=== PATIENT | female | born 1990 | race African-American/Black ===

== ENCOUNTER 2017-11-12 17:29 | Emergency (ER) | payer SELFPAY ==
[2017-11-12] MEDS: PENICILLIN G BENZATHINE LA 1,200,000 UNIT/2 ML DISP.SYRIN. IM (18:45)
[2017-11-12] MEDS: ACETAMINOPHEN 650 MG/20.3 ML SOLUTION. PO (18:45)
== END 2017-11-12 19:11 | disposition home or self-care (01) ==
LOC: ER 17:29
DX: J02.9 Acute pharyngitis, unspecified (principal); Z88.5 Allergy status to narcotic agent
CPT/HCPCS: 96372; 99283; J0561

== ENCOUNTER 2018-04-05 20:40 | Emergency (ER) | payer SELFPAY ==
[~2018-04-05] VITALS: Ht 167.6 cm; Wt 65.8 kg
--- NOTE | 2018-04-05 21:16 | PHYS DOC ---
Past Medical History Past Medical History: Seizure Past Surgical History: No Surgical History Alcohol Use: None Drug Use: None Adult General Chief Complaint Chief Complaint: LOSS OF CONSCIOUSNESS HPI HPI 27-year-old female presents to ER via POV having someone drop her off at the emergency department. Patient reports in the past 2 days she has passed out 8 times striking the back of her head. Patient reports during these episodes she becomes dizzy and things go black and then she wakes up on the floor. Patient denies incontinence of bowel or bladder during these episodes. Patient denies chest pain or palpitations. Patient denies any nausea vomiting or diarrhea. Patient reports she has been eating and drinking plenty of water. Patient reports she has had some increased urination denying any other urinary symptoms. Patient denies fever or chills, recent travel, headache, or vision changes. Patient reports she does have seizure history and is compliant with her daily Dilantin which she takes twice a day. Patient denies any anxiety, depression, or suicidal ideations. Patient reports she started her menstrual cycle today. Patient reports last episode was approximately 3 hours ago after she finished washing close she was walking up the steps with the clothes basket when she became dizzy and again things turned black. Patient reports she attempted to catch herself with the stair railing. Patient reports she woke up and she was on the steps denying any head, neck, or back pain following the fall. Patient denies incontinence of urine or bowel during this incident. During initial triage patient reports she had physical at her work 2 months ago and was told she has some type of heart irregularity but is uncertain as to what that is as she hasn't followed up. Patient also reports she was diagnosed with hypertension but has not been taking any medication due to financial issues and difficulty getting in to see primary doctor. Patient reports her mom has history of VT at the age of 3737 years old. Patient denies smoking history, EtOH use, or illicit drug use. Accu-Check 126 during initial exam. Review of Systems Review of Systems Constitutional: Denies fever or chills. Reports generalized fatigue Eyes: Denies change in visual acuity, redness, or eye pain [] HENT: Denies nasal congestion or sore throat [] Respiratory: Denies cough or shortness of breath [] Cardiovascular: Nice chest pain or palpitations GI: Denies abdominal pain, nausea, vomiting, bloody stools or diarrhea [] : Denies dysuria or hematuria. Reports increased urination Musculoskeletal: Reports left lower back pain. Reports right outer lower leg pain Integument: Denies rash, swelling or skin lesions [] Neurologic: Denies headache, focal weakness or sensory changes. Reports dizziness prior to syncope episodes Endocrine: Denies polyuria or polydipsia Psych: Denies anxiety, depression, or suicidal ideations [] All other systems were reviewed and found to be within normal limits, except as documented in this note. Current Medications Current Medications Current Medications Medications (Trade) Dose Ordered Sig/Ирина Start Time Stop Time Status Last Admin Dose Admin Acetaminophen (Tylenol) 1,000 mg 1X ONCE 04/05/18 22:00 04/05/18 22:01 DC 04/05/18 21:52 1,000 MG Sodium Chloride 1,000 ml @ 1,000 mls/hr 1X ONCE 04/05/18 21:45 04/05/18 22:44 DC 04/05/18 21:53 1,000 MLS/HR Allergies Allergies Allergies Coded Allergies Type Severity Reaction Last Updated Verified tramadol Allergy Unknown 11/12/17 Yes Physical Exam Physical Exam Constitutional: Well developed, well nourished, no acute distress, non-toxic appearance. Appears tense during initial exam HENT: Normocephalic, atraumatic, bilateral ears normal, oropharynx moist, no oral exudates, nose normal. [] Eyes: 3 mm PERRLA, EOMI-no pain with eye movement, no nystagmus, conjunctiva normal, no discharge. [] Neck: Normal range of motion, no tenderness, supple, no gross adenopathy. No midline cervical tenderness or palpable deformity Cardiovascular:Heart rate regular rhythm, no murmur [] Lungs & Thorax: Bilateral breath sounds clear to auscultation. Respirations equal and nonlabored Abdomen: Bowel sounds normal, soft, no tenderness, no masses, no pulsatile masses. [] Skin: Warm, dry, no erythema, no rash. [] Back: Tender to palpation in left lower back with no palpable deformity or swelling. No visible injury or midline spinal tenderness or palpable deformity. Left side CVA tenderness. Negative right-sided CVA tenderness Extremities: No cyanosis, no clubbing, ROM intact, no edema. Tender to palpation right lower leg lateral aspect with no visible injury or swelling Neurologic: Alert and oriented X 3, normal motor function, normal sensory function, no focal deficits noted. [] Psychologic: Affect normal, judgement normal, mood normal. [] Current Patient Data Vital Signs Vital Signs Date Time Temp Pulse Resp B/P (MAP) Pulse Ox O2 Delivery O2 Flow Rate FiO2 04/05/18 21:00 98.1 101 18 159/119 (132) 97 Room Air 98.1 Lab Values Laboratory Tests Test 04/05/18 20:42 04/05/18 21:11 04/05/18 21:13 04/05/18 21:17 Urine Collection Type Void Urine Color Yellow Urine Clarity Clear Urine pH 7.0 Urine Specific [place] 1.020 Urine Protein Negative mg/dL (NEG-TRACE) Urine Glucose (UA) Negative mg/dL (NEG) Urine Ketones (Stick) Negative mg/dL (NEG) Urine Blood Moderate (NEG) Urine Nitrite Negative (NEG) Urine Bilirubin Negative (NEG) Urine Urobilinogen Dipstick 1.0 mg/dL (0.2 mg/dL) Urine Leukocyte Esterase Negative (NEG) Urine RBC 3-5 /HPF (0-2) Urine WBC 0 /HPF (0-4) Urine Squamous Epithelial Cells Few /LPF Urine Bacteria 0 /HPF (0-FEW) Urine Mucus Slight /LPF Urine Opiates Screen Pos (NEG) Urine Methadone Screen Neg (NEG) Urine Barbiturates Neg (NEG) Urine Phencyclidine Screen Neg (NEG) Urine Amphetamine/Methamphetamine Neg (NEG) Urine Benzodiazepines Screen Neg (NEG) Urine Cocaine Screen Pos (NEG) Urine Cannabinoids Screen Neg (NEG) Urine Ethyl Alcohol Neg (NEG) POC Urine HCG, Qualitative Hcg negative (Negative) Glucose (Fingerstick) 126 mg/dL (70-99) H White Blood Count 6.7 x10^3/uL (4.0-11.0) Red Blood Count 4.83 x10^6/uL (3.50-5.40) Hemoglobin 13.1 g/dL (12.0-15.5) Hematocrit 38.0 % (36.0-47.0) Mean Corpuscular Volume 79 fL (79-100) Mean Corpuscular Hemoglobin 27 pg (25-35) Mean Corpuscular Hemoglobin Concent 34 g/dL (31-37) Red Cell Distribution Width 14.1 % (11.5-14.5) Platelet Count 320 x10^3/uL (140-400) Neutrophils (%) (Auto) 52 % (31-73) Lymphocytes (%) (Auto) 35 % (24-48) Monocytes (%) (Auto) 9 % (0-9) Eosinophils (%) (Auto) 4 % (0-3) H Basophils (%) (Auto) 1 % (0-3) Neutrophils # (Auto) 3.5 x10^3uL (1.8-7.7) Lymphocytes # (Auto) 2.3 x10^3/uL (1.0-4.8) Monocytes # (Auto) 0.6 x10^3/uL (0.0-1.1) Eosinophils # (Auto) 0.2 x10^3/uL (0.0-0.7) Basophils # (Auto) 0.0 x10^3/uL (0.0-0.2) Sodium Level 145 mmol/L (136-145) Potassium Level 3.7 mmol/L (3.5-5.1) Chloride Level 107 mmol/L (98-107) Carbon Dioxide Level 27 mmol/L (21-32) Anion Gap 11 (6-14) Blood Urea Nitrogen 13 mg/dL (7-20) Creatinine 0.9 mg/dL (0.6-1.0) Estimated GFR (Cockcroft-Gault) 90.9 BUN/Creatinine Ratio 14 (6-20) Glucose Level 115 mg/dL (70-99) H Calcium Level 9.4 mg/dL (8.5-10.1) Magnesium Level 2.1 mg/dL (1.8-2.4) Total Bilirubin 0.4 mg/dL (0.2-1.0) Aspartate Amino Transferase (AST) 16 U/L (15-37) Alanine Aminotransferase (ALT) 15 U/L (14-59) Alkaline Phosphatase 55 U/L (46-116) Troponin I Quantitative < 0.017 ng/mL (0.000-0.055) Total Protein 7.6 g/dL (6.4-8.2) Albumin 3.7 g/dL (3.4-5.0) Albumin/Globulin Ratio 0.9 (1.0-1.7) L Phenytoin (Dilantin) Level 0.6 mcg/mL (10.0-20.0) L Phenytoin Last Dose Date Unk Phenytoin Last Dose Time Unk Laboratory Tests 04/05/18 21:17 Laboratory Tests 04/05/18 21:17 EKG EKG [] Radiology/Procedures Radiology/Procedures PROCEDURE: CT HEAD WO CONTRAST EXAM: CT HEAD WITHOUT CONTRAST. HISTORY: Syncope, head injury, hypertension. TECHNIQUE: Computed tomography of the head was performed without intravenous contrast. COMPARISON: None. FINDINGS: There is no intracranial hemorrhage. Herrmann-white differentiation is preserved. The ventricles are normal in size and position. The visualized paranasal sinuses appear clear. The orbits are unremarkable. The temporal bones are unremarkable. The calvarium reveals no suspicious lesions. IMPRESSION: 1. No acute intracranial findings. *One or more of the following individualized dose reduction techniques were utilized for this examination: 1. Automated exposure control. 2. Adjustment of the mA and/or kV according to patient size. 3. Use of iterative reconstruction technique. Electronically signed by: Courtney Wood MD (04/05/2018 9:47 PM) [facility] DICTATED and SIGNED BY: DELROY WOOD MD DATE: 04/05/182144 Course & Med Decision Making Course & Med Decision Making Pertinent Labs and Imaging studies reviewed. (See chart for details) 2137: RN reports orthostatics vitals: lying BP 154/108 HR 107 Sitting BP 145/ 103 HR 87 Standing BP 146/104 HR 112. IV flds will be ordered. Will provide pt with dose of tylenol for rt lower leg pain. 2204: Patient's UDS was positive for cocaine and opiates. Dilantin level was 0.6. EKG with no acute ST elevation or STEMI which was reviewed by Dr. Alexander. Troponin <0.017. Test results were discussed with patient and patient questioning regarding cocaine use she denies any illicit drug use. Patient remains alert and oriented 3 and has had no syncope episodes while in the ER. IV fluids are infusing. Discussed need for follow-up outpatient with primary care physician and cardiology for further evaluation and possible Holter monitor to further eval her uncertain cardiac irregularity that was reported 2 months ago during her work physical. Will provide community clinic and physician information with discharge paperwork. During discussion patient is in no visible distress remaining nontoxic in appearance. Patient has had no seizure -like activity. Dragon Disclaimer Dragon Disclaimer This electronic medical record was generated, in whole or in part, using a voice recognition dictation system. Departure Departure Impression: Primary Impression: Syncope Additional Impressions: Cocaine use Leg pain, right Disposition: 01 HOME, SELF-CARE Condition: STABLE Referrals: NO PCP (PCP) Patient Instructions: Cocaine Abuse-Brief, Contusion, Syncope Additional Instructions: Your drug screen was positive for cocaine and opiates which could be causing some of your symptoms. Drink plenty of fluids and avoid drug use. Her Dilantin level was 0.6 which is low and you should be taking her Dilantin as prescribed. It is important for you to follow-up with a primary care physician within the next 1-2 days for further evaluation and discussion on prescribed seizure medication. Also advised to should follow-up on previous reported heart irregularity for further evaluation and possible Holter monitor. Avoid driving if your dizziness and episodes of passing out continue. If symptoms worsen or with concerns return to emergency department as needed for reevaluation if unable to get into a physician. Problem Qualifiers KATHLEEN LEWIS APRN Apr 05, 2018 21:16
[2018-04-05 21:34] LABS: BILIRUBIN,URINE NEGATIVE (NEG); CLARITY,URINE CLEAR; COLOR,URINE YELLOW; NITRITE,URINE NEGATIVE (NEG); PROTEIN,URINE NEGATIVE (NEG-TRACE)
[2018-04-05 21:36] LABS: BASO % 1 % (0-3); EOS # 0.2 x10^3/uL (0.0-0.7); EOS % 4 % (0-3); HEMOGLOBIN 13.1 g/dL (12.0-15.5); LYMPH # 2.3 x10^3/uL (1.0-4.8); LYMPH % 35 % (24-48); MEAN CORPUSCULAR HEMOGLOBIN 27 pg (25-35); MEAN CORPUSCULAR HGB CONC 34 g/dL (31-37); MEAN CORPUSCULAR VOLUME 79 fL (79-100); MONO # 0.6 x10^3/uL (0.0-1.1); MONO % 9 % (0-9); NEUT # 3.5 x10^3uL (1.8-7.7); NEUT % 52 % (31-73); PLATELET COUNT 320 x10^3/uL (140-400); RED BLOOD COUNT 4.83 x10^6/uL (3.50-5.40); RED CELL DISTRIBUTION WIDTH 14.1 % (11.5-14.5); WHITE BLOOD COUNT 6.7 x10^3/uL (4.0-11.0)
[2018-04-05 21:41] LABS: AMPHETAMINE/METHAMPHETAMINE NEG (NEG); BARBITURATES NEG (NEG); BENZODIAZEPINES NEG (NEG); CANNABINOIDS NEG (NEG); COCAINE POS (NEG); METHADONE NEG (NEG); OPIATES POS (NEG); PHENCYCLIDINE NEG (NEG)
[2018-04-05 21:45] LABS: BACTERIA,URINE 0 /HPF (0-FEW); SQUAMOUS EPITHELIAL CELL,UR FEW /LPF; WBC,URINE 0 /HPF (0-4)
[2018-04-05] MEDS ORDERED: IV NORMAL SALINE 1000ML BAG 1,000 ML IV ONE (21:45)
--- NOTE | 2018-04-05 21:50 | RAD ---
EXAM: CT HEAD WITHOUT CONTRAST. HISTORY: Syncope, head injury, hypertension. TECHNIQUE: Computed tomography of the head was performed without intravenous contrast. COMPARISON: None. FINDINGS: There is no intracranial hemorrhage. Herrmann-white differentiation is preserved. The ventricles are normal in size and position. The visualized paranasal sinuses appear clear. The orbits are unremarkable. The temporal bones are unremarkable. The calvarium reveals no suspicious lesions. IMPRESSION: 1. No acute intracranial findings. *One or more of the following individualized dose reduction techniques were utilized for this examination: 1. Automated exposure control. 2. Adjustment of the mA and/or kV according to patient size. 3. Use of iterative reconstruction technique. Electronically signed by: Courtney Wood MD (04/05/2018 9:47 PM) [facility]
[2018-04-05 21:54] LABS: ANION GAP 11 (6-14); BLOOD UREA NITROGEN 13 mg/dL (7-20); BUN/CREATININE RATIO 14 (6-20); CALCIUM 9.4 mg/dL (8.5-10.1); CARBON DIOXIDE 27 mmol/L (21-32); CHLORIDE 107 mmol/L (98-107); CREATININE 0.9 mg/dL (0.6-1.0); GFR 90.9; GLUCOSE 115 mg/dL (70-99); POTASSIUM 3.7 mmol/L (3.5-5.1); SODIUM 145 mmol/L (136-145)
[2018-04-05 21:59] LABS: ALBUMIN 3.7 g/dL (3.4-5.0); ALBUMIN/GLOBULIN RATIO 0.9 (1.0-1.7); ALK PHOS 55 U/L (46-116); ALT (SGPT) 15 U/L (14-59); AST (SGOT) 16 U/L (15-37); MAGNESIUM 2.1 mg/dL (1.8-2.4); PHENY 0.6 mcg/mL (10.0-20.0); TOTAL BILIRUBIN 0.4 mg/dL (0.2-1.0); TOTAL PROTEIN 7.6 g/dL (6.4-8.2)
[2018-04-05] MEDS ORDERED: ACETAMINOPHEN 500 MG TABLET PO ONE (22:00)
[2018-04-05 22:30] VITALS: BP 165/116
--- NOTE | 2018-04-06 12:59 | EKG ---
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
== END 2018-04-05 23:00 | disposition home or self-care (01) ==
LOC: ER 20:40
DX: R55 Syncope and collapse (principal); R42 Dizziness and giddiness; F14.90 Cocaine use, unspecified, uncomplicated; M54.41 Lumbago with sciatica, right side; M79.661 Pain in right lower leg; Z88.5 Allergy status to narcotic agent
CPT/HCPCS: 36415; 70450; 80053; 80185; 80307; 81001; 81025; 82962; 83735; 84484; 85025; 93005; 96360; 99285; J7030; G0479

== ENCOUNTER 2019-03-17 12:32 | Emergency (ER) | payer MEDICAID ==
[~2019-03-17] VITALS: Ht 167.6 cm; Wt 65.8 kg
[2019-03-17 13:02] VITALS: BP 162/111
--- NOTE | 2019-03-17 13:27 | PHYS DOC ---
Past Medical History Past Medical History: Seizure Past Surgical History: No Surgical History Alcohol Use: None Drug Use: None Adult General Chief Complaint Chief Complaint: LOWER BACK PAIN OR INJURY HPI HPI Patient is a 28 year old female who presents with had a baby 2 weeks ago and had a epidural. Patient states in her low back where the epidural was she get sharp shooting pains. She states this happens about 10 times a day. Review of Systems Review of Systems Constitutional: Denies fever or chills [] Musculoskeletal: low back pain or joint pain [] I All other systems were reviewed and found to be within normal limits, except as documented in this note. Allergies Allergies Allergies Coded Allergies Type Severity Reaction Last Updated Verified tramadol Allergy Unknown 11/12/17 Yes Physical Exam Physical Exam Constitutional: Well developed, well nourished, no acute distress, non-toxic appearance. [] Skin: Warm, dry, no erythema, no rash. [] Back: No tenderness, no CVA tenderness. [] Extremities: No tenderness, no cyanosis, no clubbing, ROM intact, no edema. [] Neurologic: Alert and oriented X 3, normal motor function, normal sensory function, no focal deficits noted. [] Psychologic: Affect normal, judgement normal, mood normal. Normal Physical Exam [] Current Patient Data Vital Signs Vital Signs Date Time Temp Pulse Resp B/P (MAP) Pulse Ox O2 Delivery O2 Flow Rate FiO2 03/17/19 13:02 98.6 104 16 162/111 (128) 99 Room Air 98.6 EKG EKG [] Radiology/Procedures Radiology/Procedures [] Course & Med Decision Making Course & Med Decision Making Patient is a 28 year old female who presents with had a baby 2 weeks ago and had a epidural. Patient states in her low back where the epidural was she get sharp shooting pains. She states this happens about 10 times a day. Patient denies any pain currently. She seemed with with steady gait. There is no tenderness to her spine or her back generally. There is no redness or swelling or bruising seen or felt. There is heat to the area. Afebrile. Denies headache, numbness or tingling, shortness of breath, chest pain, weakness. Skin pink warm and dry. Alert and oriented. Patient states that she did try to call her doctor's office and they would not give her information on the phone and stated that the closest appointment is in March. I did consult with Dr Alexander on this patient and he states that this is normal and she needs to call the Anesthesia department at where she had the baby. Patient is also told to try over the counter creams or patches for aggravated nerves or a heating pad. Dragon Disclaimer Dragon Disclaimer This electronic medical record was generated, in whole or in part, using a voice recognition dictation system. Departure Departure Impression: Primary Impression: Back pain Disposition: HOME, SELF-CARE Condition: STABLE Referrals: NO PCP (PCP) Patient Instructions: Back Pain, Adult Additional Instructions: CALL ANESTHESIA OFFICE AT SOON POSSIBLE. TRY USING THE LIDOCAINE PATCHES OR CREAMS WE DISCUSSED AND A HEATING PAD. SINCE YOU ARE NOT BREAST FEEDING YOU CAN TAKE 800MG OF IBUPROFEN EVERY 8 HOURS. Problem Qualifiers Primary Impression: Back pain Back pain location: low back pain Chronicity: acute Back pain laterality: midline Sciatica presence: without sciatica Qualified Codes: M54.5 - Low back pain CHANDRIKA BORJAS APRN Mar 17, 2019 13:27
== END 2019-03-17 13:29 | disposition home or self-care (01) ==
LOC: ER 12:32
DX: M54.5 Low back pain (principal); Z88.5 Allergy status to narcotic agent
CPT/HCPCS: 99281